=== PATIENT | female | born 1995 | race Caucasian/White ===

== ENCOUNTER 2018-03-26 02:27 | Emergency (ER) | payer SELFPAY ==
--- NOTE | 2018-03-26 02:42 | PDOC ---
History of Present Illness - General Chief Complaint: Ear Problem Stated Complaint: EARACHE History Source: Patient Exam Limitations: No Limitations - History of Present Illness Initial Comments: 03/26/18 03:49 22 yo F with no pmhx presents to the emergency department with bilateral ear pain with associative non productive cough for 3 days. Per the patient, she states she has had progressively worsening ear pain and that her dry cough has been repetitive to the point of gagging but denies emesis. She states beginning today she saw scants amount of blood from the coughing. Concurrently, she states she has had left chest wall pain that worsens with coughs. Past History - Past Medical History Allergies/Adverse Reactions: Allergies Allergy/AdvReac Type Severity Reaction Status Date / Time No Known Drug Allergies Allergy Verified 03/26/18 02:40 Home Medications: Ambulatory Orders No Home Medications 0 dose .ROUTE UTDICT 03/18/12 Anemia: No Asthma: No Cancer: No Cardiac Disorders: No CVA: No COPD: No CHF: No Dementia: No Diabetes: No GI Disorders: No Disorders: No HTN: No Hypercholesterolemia: No Liver Disease: No Seizures: No Thyroid Disease: No - Surgical History Orthopedic Surgery: Yes (left knee for an infection) - Suicide/Smoking/Psychosocial Hx Smoking History: Never smoked Have you smoked in the past 12 months: No Hx Alcohol Use: No Drug/Substance Use Hx: No Substance Use Type: None *DC/Admit/Observation/Transfer Diagnosis at time of Disposition: URI (upper respiratory infection) Qualifiers: URI type: unspecified URI Qualified Code(s): J06.9 - Acute upper respiratory infection, unspecified - Discharge Dispostion Disposition: HOME Decision to Admit order: No - Referrals Referrals: [facility] [place] Internal Med at [place] [Provider Group] - Patient Instructions Printed Discharge Instructions: DI for Viral Upper Respiratory Infection -- Adult Additional Instructions: You were seen in the emergency department for your cough and ear ache. On examination, there was no infection in the ear and likely no infection in the lungs. We did a strep test and a flu test. These were negative. Please follow up with the doctor that has been prescribed to you within 48-72 hours. In addition, please return to the emergency department if you experience fevers, worsening cough with production, worsening chest pain, and overall malaise. Please use tylenol and robitussin as directed on the label for symptom relief. Thank you. Fue atendido en el departamento de emergencias por morales tos y dolor de odo. En el examen, no hubo infeccin en el odo y es probable que no haya infeccin en los pulmones. Hicimos jefferson prueba de estreptococos y jefferson prueba de gripe. Estos fueron negativos. Por favor, consulte con el mdico que le haya recetado dentro de las 48 a 72 horas. Adems, regrese al departamento de emergencias si experimenta fiebre, empeoramiento de la tos con produccin, empeoramiento del dolor de pecho y malestar general. Utilice tylenol y robitussin sampson se indica en la etiqueta para aliviar los sntomas. Shefali. - Post Discharge Activity
[2018-03-26 02:43] VITALS: BP 123/68; PULSE 75; TEMP 98; BMI 22.6
[2018-03-26] MEDS ORDERED: ACETAMINOPHEN 500 MG TABLET (FP) PO ONE (04:03)
[2018-03-26] MEDS ORDERED: ACETAMINOPHEN 325 MG TABLET (FP) ONE (04:17)
--- NOTE | 2018-03-26 05:06 | PDOC ---
Attending Attestation - Resident Resident Name: Balta Cee - ED Attending Attestation I have performed the following: I have examined & evaluated the patient, The case was reviewed & discussed with the resident, I agree w/resident's findings & plan, Exceptions are as noted - HPI HPI: 03/26/18 05:05 22F with persistent coughing, bilateral ear fullness, chest wall px with cough - Physicial Exam PE: 03/26/18 05:05 agree with exam as documented by resident - Medical Decision Making 03/26/18 05:05 Non-toxic appearing 22F with likely viral syndrome symptomatic tx re-eval likely dc
== END 2018-03-26 05:44 | disposition home or self-care (01) ==
LOC: JER 02:27
DX: J06.9 Acute upper respiratory infection, unspecified (principal)
CPT/HCPCS: 87070; 87804; 87880; 99282-25

== ENCOUNTER 2019-07-07 06:55 | Inpatient (IN) | payer OTHER ==
[2019-07-07] MEDS ORDERED: PROMETHAZINE HCL 25 MG/1 ML VIAL IVPUSH ONE (07:42)
[2019-07-07] MEDS ORDERED: DEXTROSE 5%-LACTATED RINGERS 1,000 ML IV SCH (07:45)
--- NOTE | 2019-07-07 07:51 | HP ---
Past Medical History - Primary Care Physician PCP:: Sadia Mathias - Admission Chief Complaint: 24 yrs , 40.1 weeks gestation admitted in [facility]. onset LP since 10.00 PM 07/06/19. History of Present Illness: pnc at , [facility] wt gain 42 lbs during pregn 12/08/18 panel : APos, Hbsag neg, Rpr nr, Hiv nr, Hepc nr, Hiv neg, Varicella immune, Measles immune, Rubella immune , Cf screen neg, Sickle neg Pap: Nilm, gc/ct neg , lead neg 03/30/19 : 1hr Gct 70, Quantiferon neg 06/15/19 Gbs neg gc/ct neg , h/h 12.0/35.1, plt 240, Hiv neg sonogram done by [facility] for growth NT screen not done . Quad screen neg Last sono on 05/10/19, 31.6/7 wks, vx, post placenta, marginal cord insertion , lissett 16.0 , efw 4'10' ( 75 %tile ) History Source: Patient Limitations to Obtaining History: No Limitations - Past Medical History [employer]LE APPLICATION CONSULTANT: No: Migraine, Seizure Cardiovascular: No: HTN, Murmur Pulmonary: No: Asthma Gastrointestinal: No: Gastritis, GERD Hepatobiliary: No: Hepatitis B, Hepatitis C Renal/: No: UTI ...: 1 ...LMP: 09/27/18 ... Weeks Gestation by Dates: 39.5 ...EDC by Dates: 07/09/19 ...EDC by Sono: 07/06/19 (40.1 weeks by sono ) Heme/Onc: No: Anemia Infectious Disease: No: AIDS, HIV, STD's, Tuberculosis Psych: No: Addictions, Anxiety, Bipolar, Depression, Panic, Psychosis, Schizophrenia, Other - Past Surgical History Past Surgical History: Yes: None Hx Myomectomy: No Hx Transabdominal Cerclage: No - Smoking History Smoking history: Never smoked Have you smoked in the past 12 months: No - Alcohol/Substance Use Hx Alcohol Use: No History of Substance Use: reports: None - Social History History of Recent Travel: No Home Medications - Allergies Allergies/Adverse Reactions: Allergies Allergy/AdvReac Type Severity Reaction Status Date / Time No Known Drug Allergies Allergy Verified 07/07/19 07:57 - Home Medications Home Medications: Ambulatory Orders Prenat 115/Iron Fum/Folic/Dss [ 19 Tablet] 1 tab PO DAILY 07/07/19 Physical Exam - Maternity Vital Signs: Selected Entries 07/07/19 07:00 Temperature 98.4 F Pulse Rate 80 Respiratory 20 Rate Blood Pressure 129/67 Weight 167 lb Constitutional: Yes: Well Nourished, Moderate Distress Eyes: Yes: WNL HENT: Yes: WNL Neck: Yes: WNL Cardiovascular: Yes: WNL Lungs: Clear to auscultation Breast(s): Yes: WNL - Abdominal Exam/OB Fundal Height: 40 Number of Fetuses: Single Presentation: Vertex Contractions: Yes Regularity: Regular (3-5 min) Intensity: Moderate Monitor Mode: External Heart Rate (range): 150 Heart Rate Location: [facility] Category: I Accelerations: Uniform - Vaginal Exam/OB Vaginal Bleediing: No Dilatation (cm): 5cm Effacement (%): 100 Amniotic Membrane Status: Intact Presentation: Vertex/Position Station: -2 - Physical Exam Musculoskeletal: Yes: WNL Extremities: Yes: WNL. No: Calf Tenderness Edema: Yes Edema: LLE: 1+, RLE: 1+ Deep Tendon Reflex Grade: Normal +2 ...Motor Strength: WNL Psychiatric: Yes: WNL, Alert, Oriented - Labs Lab Results: Laboratory Tests 07/07/19 07/07/19 07/07/19 08:10 08:10 08:10 WBC 9.2 Hgb 12.3 Hct 35.0 Plt Count 213 PTT (Actin FS) 28.0 Sodium 136 Potassium 3.6 Chloride 106 Carbon Dioxide 21 BUN 5.2 L Creatinine 0.5 L Random Glucose 95 Calcium 8.7 Blood Type Antibody Screen 07/07/19 08:10 WBC Hgb Hct Plt Count PTT (Actin FS) Sodium Potassium Chloride Carbon Dioxide BUN Creatinine Random Glucose Calcium Blood Type A POSITIVE Antibody Screen Negative Problem List - Problems (1) Post term over 40 weeks Code(s): O48.0 - POST-TERM (2) Labor established Code(s): EQE5825 - Assessment/Plan 24 yrs 40.1 weeks admitted in actve labor GBS neg Plan Trial of vaginal delivery Stadol + phenrgan for labor analgesia .
[2019-07-07 08:15] VITALS: BMI 29.5
[2019-07-07] MEDS ORDERED: BUTORPHANOL TARTRATE 1 MG/ML VIAL IVPB ONE (08:30)
[2019-07-07 08:31] LABS: BASO % 0.1 % (0-2.0); EOS % 0.4 % (0-4.5); HEMOGLOBIN 12.3 GM/dL (10.7-15.3); LYMPH % 16.4 % (8-40); MCH 29.9 pg (25.7-33.7); MCHC 35.1 g/dl (32.0-36.0); MEAN CELL VOLUME 85.1 fl (80-96); MEAN PLT VOLUME 8.4 fl (7.5-11.1); MONO % 5.6 % (3.8-10.2); NEUT % 77.5 % (42.8-82.8); PLATELET COUNT 213 K/MM3 (134-434); RBC 4.11 M/mm3 (3.60-5.2); RDW 14.3 % (11.6-15.6); WHITE BLOOD COUNT 9.2 K/mm3 (4.0-10.0)
[2019-07-07 08:53] LABS: BLOOD UREA NITROGEN 5.2 mg/dL (7-18); CALCIUM 8.7 mg/dL (8.5-10.1); CREATININE 0.5 mg/dL (0.55-1.3); POTASSIUM 3.6 mmol/L (3.5-5.1)
[2019-07-07] MEDS ORDERED: PROMETHAZINE HCL 25 MG/1 ML VIAL ONE (09:11)
[2019-07-07] MEDS ORDERED: BUTORPHANOL TARTRATE 1 MG/ML VIAL ONE ×2 (09:11)
[2019-07-07 09:52] LABS: INR 0.92 (0.83-1.09); PROTHROMBIN TIME (PATIENT) 10.9 SEC (9.7-13.0)
[2019-07-07] MEDS ORDERED: OXYTOCIN 20 UNITS in 0.9% NS 20 UNIT/1,000 ML INFUS.BAG IV ONE (11:38)
--- NOTE | 2019-07-07 11:51 | PN ---
Progress Note, Labor Vaginal Exam #1 Labor Exam Date: 07/07/19 Labor Exam Time: 09:10 Heart Rate (range): 135 Dilatation: 7 Effacement (%): 100 Amniotic Membrane Status: Ruptured (AROM , clear, mod amount) Presentation: Vertex/Position Station: -1 Remarks: fhr cat-1 uc q 2-4 min Stadol 2 mg + phenrgan 25 mg iv stat dose given Selected Entries 07/07/19 08:00 Temperature 98.7 F Pulse Rate 74 Respiratory 20 Rate Blood Pressure 136/76 Vaginal Exam #2 Labor Exam Date: 07/07/19 Labor Exam Time: 11:42 Heart Rate (range): 130 Dilatation: 9 Effacement (%): 100 Amniotic Membrane Status: Ruptured Presentation: Vertex/Position Station: +1 (caput) Remarks: fhr cat-1 uc q 3-4 min Selected Entries 07/07/19 11:30 Temperature 98.2 F Pulse Rate 71 Blood Pressure 138/75 Vaginal Exam #3 Labor Exam Date: 07/07/19 Labor Exam Time: 13:00 Heart Rate (range): 140 Dilatation: 10 Effacement (%): 100 Amniotic Membrane Status: Ruptured Presentation: Vertex/Position Station: +2 (+2/+3 ,caput) Remarks: uc dysfunctional 3 min to 1 min , fhr cat-1 pt feels better pushing . encourage to push 13.15 hr pitocin augmentation started to improve contraction strength Selected Entries 07/07/19 12:38 Temperature 98.3 F Pulse Rate 78 Blood Pressure 145/82
[2019-07-07] MEDS ORDERED: OXYTOCIN 30 UNITS in 0.9% NS 30 UNIT/500 ML INFUS.BAG IVPB ONE (13:12)
[2019-07-07] MEDS ORDERED: OXYTOCIN 30 UNITS in 0.9% NS 30 UNIT/500 ML INFUS.BAG IVPB SCH (13:15)
[2019-07-07] MEDS ORDERED: LIDOCAINE HCL 1% PRESERVATIVE FREE - 30ML VIAL ONE (13:50)
--- NOTE | 2019-07-07 14:58 | PN ---
Delivery - Delivery Vaginal Delivery: No Problems, Spontaneous (vaginal delivery vx, Melo position . Suction at perineum mouth & nose was done . shoulders delievered without difficulty . . placenta & membranes delievered complete;y. marginal insertion of cord at placenta confirmed. Trivascular cord .cord segment for cord blood gas cut,only umblical venous blood could be collected, unable to draw UA blood.cord blood collected. Median epi was given which was sutured in layers with chr catgut #2/0 . bladder catheterized & emptied 100 ml urine. WI ex mucosa & sphincter intact .Anal tags noted) Type of Anesthesia: Local Episiotomy/Laceration: Midline EBL (cc): 350 Delivery, Single - Stages of Labor Date 1st Stage Initiatied: 07/06/19 Time 1st Stage Initiated: 22:00 Date 2nd Stage Initiated: 07/07/19 Time 2nd Stage Initiated: 13:00 Date of Delivery: 07/07/19 Time of Delivery: 14:05 Date Placenta Delivered: 07/07/19 Time Placenta Delivered: 14:10 Placenta: Yes: Spontaneous, Uterine Exploration - Condition of Infant Leather Whitener/Renewable Energy Division Manager Present: No Gender: Male Weight: 8 lb 2 oz Position: Right, OA Total Hours ROM (Hrs/Mins): 5hrs - 1 Minute Total Score: 9 5 Minutes Total Score: 9 - Feeding Plan Initial Plan: Exclusive throughout hospitalization Remarks - Remarks Remarks: 24 yrs , 40.1 weeks in labor pnc at [address] [place] [address] gbs neg . Iv stadol+ phenrgan was given for labor analgesia intrapartum course uneventful
[2019-07-07] MEDS ORDERED: WITCH HAZEL 50% (TUCKS) 40 PAD/JAR PAD TP PRN (15:03)
[2019-07-07] MEDS ORDERED: BENZOCAINE 28 GM HEMORRHOIDAL OINTMENT TP PRN (15:03)
[2019-07-07] MEDS ORDERED: ACETAMINOPHEN 325 MG TABLET (FP) PO PRN (15:03)
[2019-07-07] MEDS ORDERED: BISACODYL 10 MG SUPP.RECT RC PRN (15:03)
[2019-07-07] MEDS ORDERED: METHYLERGONOVINE MALEATE 0.2 MG/1 ML AMP IM PRN (15:03)
[2019-07-07] MEDS ORDERED: BENZOCAINE 20% 57 GM BOTTLE TP PRN (15:03)
[2019-07-07] MEDS ORDERED: oxyCODONE HCL 5 MG TABLET PO PRN (15:03)
[2019-07-07] MEDS ORDERED: IBUPROFEN 600 MG TABLET (FP) PO PRN (15:03)
[2019-07-07] MEDS ORDERED: OXYTOCIN 20 UNITS in 0.9% NS 20 UNIT/1,000 ML INFUS.BAG IV SCH (15:15)
[2019-07-07] MEDS: FERROUS SO4 325 MG TABLET (FP) PO SCH (17:41)
[2019-07-08 08:55] LABS: BASO % 0.3 % (0-2.0); EOS % 0.3 % (0-4.5); HEMATOCRIT 29.4 % (32.4-45.2); LYMPH % 16.9 % (8-40); MCH 29.7 pg (25.7-33.7); MEAN CELL VOLUME 87.2 fl (80-96); MEAN PLT VOLUME 8.8 fl (7.5-11.1); MONO % 6.3 % (3.8-10.2); NEUT % 76.2 % (42.8-82.8); PLATELET COUNT 177 K/MM3 (134-434); RBC 3.37 M/mm3 (3.60-5.2); RDW 14.5 % (11.6-15.6); WHITE BLOOD COUNT 13.4 K/mm3 (4.0-10.0)
--- NOTE | 2019-07-08 09:23 | PN ---
Post Progress Note - Subjective Subjective: Ambulating, tolerating PO, lochia decreased, breast and bottle feeding, voiding Post Day: 1 Type of Delivery: Vital Signs: Vital Signs Temperature 98.7 F 07/08/19 02:00 Pulse Rate 77 07/08/19 02:00 Respiratory Rate 18 07/08/19 02:00 Blood Pressure 105/58 L 07/08/19 02:00 O2 Sat by Pulse Oximetry (%) 100 07/07/19 15:30 Breast Exam: Yes: Other (deferred) Uterus: Yes: Fundus Firm Abdomen/GI: Yes: Abdomen soft Lochia, amount: Small Extremities: Yes: Calves non-tender Activity: Ambulating - Labs Labs: CBC WBC 13.4 K/mm3 (4.0-10.0) H 07/08/19 07:49 RBC 3.37 M/mm3 (3.60-5.2) L 07/08/19 07:49 Hgb 10.0 GM/dL (10.7-15.3) L 07/08/19 07:49 Hct 29.4 % (32.4-45.2) L D 07/08/19 07:49 MCV 87.2 fl (80-96) 07/08/19 07:49 MCH 29.7 pg (25.7-33.7) 07/08/19 07:49 MCHC 34.0 g/dl (32.0-36.0) 07/08/19 07:49 RDW 14.5 % (11.6-15.6) 07/08/19 07:49 Plt Count 177 K/MM3 (134-434) 07/08/19 07:49 MPV 8.8 fl (7.5-11.1) 07/08/19 07:49 Absolute Neuts (auto) 10.2 K/mm3 (1.5-8.0) H 07/08/19 07:49 Neutrophils % 76.2 % (42.8-82.8) 07/08/19 07:49 Lymphocytes % 16.9 % (8-40) 07/08/19 07:49 Monocytes % 6.3 % (3.8-10.2) 07/08/19 07:49 Eosinophils % 0.3 % (0-4.5) 07/08/19 07:49 Basophils % 0.3 % (0-2.0) 07/08/19 07:49 Nucleated RBC % 0 % (0-0) 07/08/19 07:49 Assessment/Plan PP # 1 in stable condition, PP precautions discussed, baby at bedside and declined circumcision -Continue PP care -Encourage ambulation and breast feeding -Anticipate D/C home tomorrow
[2019-07-08] MEDS: FERROUS SO4 325 MG TABLET (FP) PO SCH ×2 (09:24→17:07)
[2019-07-08] MEDS: PRENATAL VITAMINS W/ FOLIC ACID TABLET (FP) PO SCH (09:24)
[2019-07-08] MEDS ORDERED: DIPHTH,PERTUSS(ACELL),TET 0.5 ML DISP.SYRIN IM ONE (10:00)
[2019-07-08] MEDS ORDERED: SENNOSIDES/DOCUSATE COMBO (SENNA PLUS) TABLET (UD) PO PRN (22:00)
--- NOTE | 2019-07-09 07:03 | DS ---
Physical Exam-VPK TEACHER Vital Signs: Vital Signs Temperature 98.1 F 07/08/19 21:35 Pulse Rate 83 07/08/19 21:35 Respiratory Rate 20 07/08/19 21:35 Blood Pressure 119/72 07/08/19 21:35 O2 Sat by Pulse Oximetry (%) 100 07/07/19 15:30 Constitutional: Yes: Well Nourished, No Distress, Calm Eyes: Yes: WNL, Conjunctiva Clear, EOM Intact HENT: Yes: WNL, Atraumatic, Normocephalic Neck: Yes: WNL Cardiovascular: Yes: WNL Respiratory: Yes: WNL Gastrointestinal: Yes: WNL ...Rectal Exam: Yes: WNL Renal/: Yes: WNL External Genitalia: Yes: Normal ....Post : Yes: Uterus firm, Uterus non-tender, Slight lochia rubra Breast(s): Yes: WNL Musculoskeletal: Yes: WNL Extremities: Yes: WNL Edema: No Integumentary: Yes: WNL Neurological: Yes: WNL ...Motor Strength: WNL Psychiatric: Yes: WNL Labs: CBC, BMP 07/08/19 07:49 07/07/19 08:10 Delivery - Delivery Vaginal Delivery: No Problems, Spontaneous (vaginal delivery vx, Melo position . Suction at perineum mouth & nose was done . shoulders delievered without difficulty . . placenta & membranes delievered complete;y. marginal insertion of cord at placenta confirmed. Trivascular cord .cord segment for cord blood gas cut,only umblical venous blood could be collected, unable to draw UA blood.cord blood collected. Median epi was given which was sutured in layers with chr catgut #2/0 . bladder catheterized & emptied 100 ml urine. CO ex mucosa & sphincter intact .Anal tags noted) Type of Anesthesia: Local Episiotomy/Laceration: Midline EBL (cc): 350 Delivery, Single - Stages of Labor Date 1st Stage Initiatied: 07/06/19 Time 1st Stage Initiated: 22:00 Date 2nd Stage Initiated: 07/07/19 Time 2nd Stage Initiated: 13:00 Date of Delivery: 07/07/19 Time of Delivery: 14:05 Time Placenta Delivered: 14:10 Placenta: Yes: Spontaneous, Uterine Exploration - Condition of Hose Tubing Backer/Street Photographer Present: No Gender: Male Weight: 8 lb 2 oz Position: Right, OA Total Hours ROM (Hrs/Mins): 5hrs - 1 Minute Total Score: 9 5 Minutes Total Score: 9 - [place] Feeding Plan Initial Plan: Exclusive throughout hospitalization Discharge Summary Problems reviewed: Yes Reason For Visit: LABOR Current Active Problems Labor established (Acute) Normal spontaneous vaginal delivery (Acute) Post term over 40 weeks (Acute) Procedures: Principal: Hospital Course: no complication Health Concerns: anemia Plan of Treatment: iron, vit Condition: Stable - Instructions Diet, Activity, Other Instructions: Post Instructions DIET: Continue good diet high in protein, calcium, and iron rich foods. Drink at least eight (8) glasses of water daily in addition to other fluids. ___ Regular diet MEDICATIONS: Continue vitamins and iron as previously directed. Motrin and Tylenol may be taken for minor discomfort. ACTIVITY: Mild to moderate exercise may be started in two (2) weeks. Take frequent rest periods. Resume normal activity after six (6) week check up. WOUND CARE OF OPERATIVE SITE: Continue use of perineal bottle until vaginal discharge stops. Keep area clean. Shower daily. Keep abdominal wound dry. Report any drainage or redness to physician. Tub baths, tampons and douches are not permitted for [address]_ Breast feeding & or Bottle feeding BREAST CARE: (For those that are not ): If engorgement occurs: Wear tight fitting bra. Take Tylenol or Motrin for pain. Apply cold packs (ice in bags to each breast ) FAMILY PLANNING: There are many control alternatives to pursue and they should be discussed at your first office visit. You may resume sexual activity after your six (6) week check up. (Remember, is not a contraceptive) NEXT PHYSICIAN APPOINTMENT: Be certain to call for a three (3) week appointment, unless otherwise directed. Call Clinic or got to Emergency Dept if you have any of the following: Heavy vaginal bleeding Painful urination Leg pain Unusual odor noted to vaginal bleeding High fever Red streaking noted on breast Referrals: Sadia Mathias MD [Staff Physician] - Disposition: HOME - Home Medications Comprehensive Discharge Medication List: Ambulatory Orders Prenat 115/Iron Fum/Folic/Dss [ 19 Tablet] 1 tab PO DAILY 07/07/19 Acetaminophen [Tylenol .Regular Strength -] 650 mg PO Q3H PRN tablet 07/08/19 Benzocaine [Americaine 20% [place] -] 1 spray TP PRN PRN bottle 07/08/19 Ferrous Sulfate [Feosol] 325 mg PO DAILY #30 tab 07/08/19 Ibuprofen [Motrin -] 600 mg PO Q4H PRN #30 tablet 07/08/19 Vitamins (Sjr) - 1 tab PO DAILY #30 tablet 07/08/19 Sennosides/Docusate Sodium [Pericolace -] 2 tablet PO HS PRN #30 tablet 07/08/19 Witch Susan 50% (Tucks) [Tucks Pads -] 1 pad TP PRN PRN pad 07/08/19
[2019-07-09] MEDS: FERROUS SO4 325 MG TABLET (FP) PO SCH (08:00)
[2019-07-09] MEDS: PRENATAL VITAMINS W/ FOLIC ACID TABLET (FP) PO SCH (10:29)
[2019-07-09 12:34] VITALS: BP 132/73; PULSE 77; TEMP 98.3
== END 2019-07-09 14:40 | disposition home or self-care (01) | DRG 560 ==
LOC: JLDR 06:55 → J3W 16:01
PROVIDERS: ADMIT Obstetrics & Gynecology; ATTEND Obstetrics & Gynecology
PROC: 0W8NXZZ Division of Female Perineum, External Approach (ICD-10-PCS; principal; 2019-07-07)
PROC: 10E0XZZ Delivery of Products of Conception, External Approach (ICD-10-PCS; 2019-07-07)
DX: O48.0 Post-term pregnancy (principal); Z3A.40 40 weeks gestation of pregnancy; Z37.0 Single live birth
CPT/HCPCS: 36415; 36600; 59409; 80048; 82803; 85025; 85610; 85730; 86593; 86850; 86900; 86901; 90715

== ENCOUNTER 2020-10-03 04:39 | Emergency (ER) | payer OTHER ==
[2020-10-03 04:47] VITALS: BMI 23.0
[2020-10-03] MEDS ORDERED: morphine CARPU-JECT 4 MG/1 ML DISP.SYRIN IVPUSH ONE (05:09)
[2020-10-03] MEDS ORDERED: ONDANSETRON 4 MG/2 ML VIAL IVPUSH ONE (05:09)
[2020-10-03] MEDS ORDERED: LACTATED RINGERS SOLUTION 1000 ML INFUS.BAG IV ONE (05:10)
[2020-10-03] MEDS ORDERED: morphine SULFATE 4 MG/ML VIAL ONE (05:23)
[2020-10-03] MEDS ORDERED: ONDANSETRON 4 MG/2 ML VIAL ONE (05:24)
[2020-10-03 06:26] LABS: BASO % 0.1 % (0-2.0); EOS % 0.1 % (0-4.5); HEMATOCRIT 41.2 % (32.4-45.2); HEMOGLOBIN 14.3 GM/dL (10.7-15.3); LYMPH % 12.2 % (8-40); MCH 28.6 pg (25.7-33.7); MCHC 34.6 g/dl (32.0-36.0); MEAN CELL VOLUME 82.8 fl (80-96); MEAN PLT VOLUME 7.9 fl (7.5-11.1); MONO % 3.3 % (3.8-10.2); NEUT % 84.3 % (42.8-82.8); PLATELET COUNT 293 K/MM3 (134-434); RBC 4.98 M/mm3 (3.60-5.2); RDW 13.8 % (11.6-15.6); WHITE BLOOD COUNT 9.7 K/mm3 (4.0-10.0)
[2020-10-03 06:32] LABS: EPI CELLS 28 /uL (0-25.1); HCG,QUALITATIVE URINE Negative; HYALINE CASTS 2 /uL (0-3.1); PH,URINE 5.5 (5.0-8.0); URINE APPEARANCE CLEAR; URINE BACTERIA 1087 /uL (0-1359); URINE BILIRUBIN NEGATIVE (NEGATIVE); URINE COLOR YELLOW; URINE GLUCOSE (UA) NEGATIVE (NEGATIVE); URINE KETONE NEGATIVE (NEGATIVE); URINE LEUK ESTERASE TRACE (NEGATIVE); URINE NITRITE NEGATIVE (NEGATIVE); URINE PROTEIN TRACE (NEGATIVE); URINE RBC 6 /uL (0-23.9); URINE UROBILINOGEN 0.2 mg/dL (0.2-1.0); URINE WBC 54 /uL (0-25.8)
[2020-10-03 06:34] LABS: PROTHROMBIN TIME (PATIENT) 12.1 SEC (9.7-13.0)
[2020-10-03 06:49] LABS: ALBUMIN 4.5 g/dl (3.4-5.0); CALCIUM 9.3 mg/dL (8.5-10.1)
[2020-10-03 06:52] LABS: CREATININE 0.4 mg/dL (0.55-1.3)
[2020-10-03 06:53] LABS: BILIRUBIN,TOTAL 0.4 mg/dL (0.2-1)
[2020-10-03 06:54] LABS: TOT PROT 8.6 g/dl (6.4-8.2)
[2020-10-03 07:22] VITALS: BP 136/95; PULSE 70; TEMP 98.4
[2020-10-03] MEDS ORDERED: morphine CARPU-JECT 2 MG/1 ML DISP.SYRIN IVPUSH ONE (07:31)
[2020-10-03] MEDS ORDERED: ACETAMINOPHEN 500 MG TABLET (FP) PO ONE (07:31)
[2020-10-03] MEDS ORDERED: MORPHINE SULFATE 2 MG/ML VIAL ONE (07:32)
[2020-10-03] MEDS ORDERED: ACETAMINOPHEN 325 MG TABLET (FP) ONE (08:39)
[2020-10-03] MEDS ORDERED: CEFTRIAXONE 1,000 MG in DEXTROSE 5%-WATER - 50 ML IVPB ONE (11:07)
[2020-10-03] MEDS ORDERED: ACETAMINOPHEN 1000 MG/100 ML VIAL (NON FORMULARY) IVPB ONE (11:07)
[2020-10-03] MEDS ORDERED: ACETAMINOPHEN INJECTION 100 ML IVPB ONE (11:25)
[2020-10-03] MEDS ORDERED: CEFTRIAXONE 1 GM/50 ML BAG ONE (11:26)
[2020-10-03] MEDS ORDERED: FAMOTIDINE 20 MG/50 ML IVPB 20 MG/50 ML MG IVPB ONE ×2 (11:45→11:47)
== END 2020-10-03 11:37 | disposition home or self-care (01) ==
LOC: JER 04:39
PROC: 3E0333Z Introduction of Anti-inflammatory into Peripheral Vein, Percutaneous Approach (ICD-10-PCS; principal; 2020-10-03)
PROC: 3E03329 Introduction of Other Anti-infective into Peripheral Vein, Percutaneous Approach (ICD-10-PCS; 2020-10-03)
PROC: 3E033GC Introduction of Other Therapeutic Substance into Peripheral Vein, Percutaneous Approach (ICD-10-PCS; 2020-10-03)
PROC: 3E033NZ Introduction of Analgesics, Hypnotics, Sedatives into Peripheral Vein, Percutaneous Approach (ICD-10-PCS; 2020-10-03)
PROC: 3E033NZ Introduction of Analgesics, Hypnotics, Sedatives into Peripheral Vein, Percutaneous Approach (ICD-10-PCS; 2020-10-03)
PROC: 3E033GC Introduction of Other Therapeutic Substance into Peripheral Vein, Percutaneous Approach (ICD-10-PCS; 2020-10-03)
DX: R10.11 Right upper quadrant pain (principal)
CPT/HCPCS: 36415; 76705-TC; 80053; 81003; 83690; 84703; 85025; 85610; 85730; 86850; 86900; 86901; 87086; 93005; 93010; 99285-25; J0131

== ENCOUNTER 2020-10-30 04:55 | Inpatient (IN) | payer OTHER ==
[2020-10-30 05:06] VITALS: BMI 22.3
[2020-10-30] MEDS ORDERED: SODIUM CHLORIDE 0.9% 500 ML INFUS.BAG IV ONE (05:21)
[2020-10-30] MEDS ORDERED: morphine CARPU-JECT 4 MG/1 ML DISP.SYRIN IVPUSH ONE (05:21)
[2020-10-30] MEDS ORDERED: ONDANSETRON 4 MG/2 ML VIAL IVPUSH ONE (05:33)
[2020-10-30] MEDS ORDERED: MORPHINE SULFATE 2 MG/ML VIAL ONE ×2 (05:34→06:19)
[2020-10-30] MEDS ORDERED: ONDANSETRON 4 MG/2 ML VIAL ONE (05:35)
[2020-10-30 06:07] LABS: INR 1.06 (0.83-1.09)
[2020-10-30 06:09] LABS: ACTIVATED PTT 28.7 SECONDS (25.2-36.5)
[2020-10-30] MEDS ORDERED: morphine CARPU-JECT 2 MG/1 ML DISP.SYRIN IVPUSH ONE (06:15)
[2020-10-30] MEDS ORDERED: ACETAMINOPHEN 1000 MG/100 ML VIAL (NON FORMULARY) IVPB ONE (06:15)
[2020-10-30 06:17] LABS: ALBUMIN 4.4 g/dl (3.4-5.0); BLOOD UREA NITROGEN 12.6 mg/dL (7-18); CALCIUM 8.9 mg/dL (8.5-10.1)
[2020-10-30] MEDS ORDERED: ACETAMINOPHEN INJECTION 100 ML IVPB ONE (06:19)
[2020-10-30 06:21] LABS: CREATININE 0.4 mg/dL (0.55-1.3)
[2020-10-30 06:22] LABS: BILIRUBIN,TOTAL 0.6 mg/dL (0.2-1); TOT PROT 8.4 g/dl (6.4-8.2)
[2020-10-30 06:26] LABS: BASO % 0.2 % (0-2.0); EOS % 0.2 % (0-4.5); HEMATOCRIT 40.2 % (32.4-45.2); HEMOGLOBIN 13.8 GM/dL (10.7-15.3); LYMPH % 14.3 % (8-40); MCH 27.9 pg (25.7-33.7); MCHC 34.3 g/dl (32.0-36.0); MEAN CELL VOLUME 81.4 fl (80-96); MEAN PLT VOLUME 7.8 fl (7.5-11.1); NEUT % 80.3 % (42.8-82.8); PLATELET COUNT 283 10^3/uL (134-434); RBC 4.94 M/mm3 (3.60-5.2); RDW 13.5 % (11.6-15.6); WHITE BLOOD COUNT 8.4 K/mm3 (4.0-10.0)
[2020-10-30] MEDS ORDERED: CEFTRIAXONE 1,000 MG in DEXTROSE 5%-WATER - 50 ML IVPB ONE (06:33)
[2020-10-30] MEDS ORDERED: CEFTRIAXONE 1 GM/50 ML BAG ONE (06:34)
[2020-10-30] MEDS ORDERED: morphine CARPU-JECT 2 MG/1 ML DISP.SYRIN IVPUSH PRN (09:20)
[2020-10-30] MEDS ORDERED: ONDANSETRON 4 MG/2 ML VIAL IVPUSH PRN (09:22)
[2020-10-30] MEDS: SODIUM CHLORIDE 1,000 ML IV SCH ×2 (09:40→18:18)
[2020-10-30] MEDS ORDERED: PIPERACILLIN/TAZOB 3.375 GM 3.375 GM/50 ML BAG IVPB ONE (12:08)
[2020-10-30] MEDS: PIPERACILLIN/TAZOB 3.375 GM 3.375 GM in DEXTROSE 5%-WATER - 50 ML IVPB SCH ×2 (12:09→19:53)
[2020-10-30] MEDS ORDERED: ACETAMINOPHEN 1000 MG/100 ML VIAL (NON FORMULARY) IVPB PRN (19:14)
[2020-10-30] MEDS ORDERED: DEXTROSE 5%-WATER - 50 ML IVPB ONE (19:38)
[2020-10-30] MEDS ORDERED: PIPERACILLIN/TAZOBACTAM 3.375 GM VIAL IVPB ONE (19:38)
[2020-10-30] MEDS ORDERED: MORPHINE SULFATE 2 MG/ML VIAL IVPUSH PRN (23:35)
[2020-10-31] MEDS ORDERED: DEXTROSE 5%-WATER - 50 ML IVPB ONE ×2 (03:20→09:14)
[2020-10-31] MEDS ORDERED: PIPERACILLIN/TAZOBACTAM 3.375 GM VIAL IVPB ONE ×2 (03:20→09:14)
[2020-10-31] MEDS: PIPERACILLIN/TAZOB 3.375 GM 3.375 GM in DEXTROSE 5%-WATER - 50 ML IVPB SCH (04:00)
[2020-10-31] MEDS: SODIUM CHLORIDE 1,000 ML IV SCH (05:17)
[2020-10-31 08:16] LABS: HEMATOCRIT 35.6 % (32.4-45.2); MCH 27.7 pg (25.7-33.7); MCHC 33.8 g/dl (32.0-36.0); MEAN CELL VOLUME 81.9 fl (80-96); MEAN PLT VOLUME 7.6 fl (7.5-11.1); PLATELET COUNT 219 10^3/uL (134-434); RBC 4.34 M/mm3 (3.60-5.2); RDW 13.5 % (11.6-15.6); WHITE BLOOD COUNT 6.8 K/mm3 (4.0-10.0)
[2020-10-31 08:18] LABS: INR 1.19 (0.83-1.09); PROTHROMBIN TIME (PATIENT) 14.6 SEC (9.7-13.0)
[2020-10-31 08:20] LABS: ACTIVATED PTT 29.3 SECONDS (25.2-36.5)
[2020-10-31 08:30] LABS: CALCIUM 8.2 mg/dL (8.5-10.1)
[2020-10-31 08:31] LABS: BLOOD UREA NITROGEN 11.4 mg/dL (7-18); MAGNESIUM 1.9 mg/dL (1.8-2.4)
[2020-10-31 08:34] LABS: CREATININE 0.4 mg/dL (0.55-1.3); PHOSPHOROUS 4.2 mg/dL (2.5-4.9)
[2020-10-31 08:36] LABS: BILIRUBIN,TOTAL 0.9 mg/dL (0.2-1); TOT PROT 6.8 g/dl (6.4-8.2)
[2020-10-31 08:46] LABS: ALBUMIN 3.4 g/dl (3.4-5.0)
[2020-10-31] MEDS ORDERED: PIPERACILLIN/TAZOB 3.375 GM 3.375 GM in DEXTROSE 5%-WATER - 50 ML IVPB SCH (10:00)
[2020-10-31] MEDS ORDERED: BUPIVACAINE HCL/PF 0.5% (5MG/ML) 10 ML VIAL ONE ×2 (12:33→12:38)
[2020-10-31] MEDS ORDERED: SUCCINYLCHOLINE CHLORIDE 200 MG/10 ML SYRINGE ONE (13:32)
[2020-10-31] MEDS ORDERED: fentaNYL CITRATE 250 MCG/5 ML VIAL ONE (13:32)
[2020-10-31] MEDS ORDERED: PROPOFOL 20 ML ONE ×2 (13:32)
[2020-10-31] MEDS ORDERED: MIDAZOLAM HCL 2 MG/2 ML SINGLE DOSE VIAL ONE (13:32)
[2020-10-31] MEDS ORDERED: ROCURONIUM BROMIDE 50 MG/5 ML SYRINGE ONE (13:32)
[2020-10-31] MEDS ORDERED: EPHEDRINE SULFATE/0.9% NACL/PF 50 MG/10 ML SYRINGE NR ONE (13:38)
[2020-10-31] MEDS ORDERED: DEXAMETHASONE SOD PHOSPHATE 4 MG/1 ML VIAL ONE (13:57)
[2020-10-31] MEDS ORDERED: KETOROLAC TROMETHAMINE 30 MG/1 ML VIAL ONE (13:57)
[2020-10-31] MEDS ORDERED: GLYCOPYRROLATE 0.2 MG/1 ML VIAL ONE ×2 (14:00→15:40)
[2020-10-31] MEDS ORDERED: NEOSTIGMINE METHYLSULFATE 0.5 MG/ML - 10 ML MDV ONE (14:00)
[2020-10-31] MEDS ORDERED: MINERAL OIL/PETROLATUM,WHITE 3.5 GM TUBE ONE ×2 (14:02→15:53)
[2020-10-31] MEDS ORDERED: BUPIVACAINE HCL/PF 0.5% (5 MG/ML) 30 ML VIAL IJ ONE (14:48)
[2020-10-31] MEDS ORDERED: ESMOLOL HCL 100,000 MCG/10 ML VIAL ONE (15:41)
[2020-10-31] MEDS ORDERED: ONDANSETRON 4 MG/2 ML VIAL IVPUSH PRN ×2 (16:02→16:28)
[2020-10-31] MEDS ORDERED: ACETAMINOPHEN 1000 MG/100 ML VIAL (NON FORMULARY) IVPB PRN (16:14)
[2020-10-31] MEDS ORDERED: LACTATED RINGERS SOLUTION 1,000 ML IV SCH ×2 (16:15→16:28)
[2020-10-31] MEDS ORDERED: KETOROLAC TROMETHAMINE 30 MG/1 ML VIAL IVPUSH PRN (16:15)
[2020-10-31] MEDS ORDERED: MORPHINE SULFATE 2 MG/ML VIAL IVPUSH PRN (16:28)
[2020-10-31] MEDS ORDERED: ACETAMINOPHEN INJECTION 100 ML IVPB ONE (16:59)
[2020-10-31] MEDS ORDERED: ACETAMINOPHEN 1000 MG/100 ML VIAL (NON FORMULARY) IVPB ONE (17:00)
[2020-10-31] MEDS: oxyCODONE HCL 5 MG TABLET PO PRN (21:53)
[2020-11-01] MEDS: oxyCODONE HCL 5 MG TABLET PO PRN (03:35)
[2020-11-01 09:08] LABS: HEMATOCRIT 35.7 % (32.4-45.2); HEMOGLOBIN 11.9 GM/dL (10.7-15.3); MCH 27.3 pg (25.7-33.7); MCHC 33.3 g/dl (32.0-36.0); MEAN CELL VOLUME 82.1 fl (80-96); MEAN PLT VOLUME 7.9 fl (7.5-11.1); PLATELET COUNT 255 10^3/uL (134-434); RBC 4.34 M/mm3 (3.60-5.2); RDW 13.3 % (11.6-15.6)
[2020-11-01 09:29] LABS: ALBUMIN 3.3 g/dl (3.4-5.0); BLOOD UREA NITROGEN 5.8 mg/dL (7-18); CALCIUM 8.4 mg/dL (8.5-10.1)
[2020-11-01 09:32] LABS: CREATININE 0.5 mg/dL (0.55-1.3)
[2020-11-01 09:34] LABS: BILIRUBIN,TOTAL 0.8 mg/dL (0.2-1); TOT PROT 6.5 g/dl (6.4-8.2)
[2020-11-01 13:17] VITALS: BP 112/61; PULSE 74; TEMP 98.4
== END 2020-11-01 18:17 | disposition home or self-care (01) | DRG 263 ==
LOC: JER 04:55 → JERBED 06:56 → J6S 13:57
PROVIDERS: ATTEND Internal Medicine
PROC: 0FT44ZZ Resection of Gallbladder, Percutaneous Endoscopic Approach (ICD-10-PCS; principal; 2020-10-31 13:00)
DX: K80.00 Calculus of gallbladder with acute cholecystitis without obstruction (principal)
CPT/HCPCS: 36415; 71045-TC-FY; 76705-TC; 80053; 83690; 83735; 84100; 84703; 85025; 85027; 85610; 85730; 86850; 86900; 86901; 93005; 93010; 94010; 94760; 99285-25; C9803; J0131; U0003; U0005

== ENCOUNTER 2020-11-01 21:22 | Emergency (ER) | payer OTHER ==
[2020-11-01 21:28] VITALS: TEMP 98.3; BMI 20.1
[2020-11-02] MEDS ORDERED: ACETAMINOPHEN 500 MG TABLET (FP) PO ONE (00:01)
[2020-11-02] MEDS ORDERED: ACETAMINOPHEN 1000 MG/100 ML VIAL (NON FORMULARY) IVPB ONE (00:13)
[2020-11-02] MEDS ORDERED: ONDANSETRON 4 MG/2 ML VIAL IVPUSH ONE ×2 (00:13→02:09)
[2020-11-02] MEDS ORDERED: ONDANSETRON 4 MG/2 ML VIAL ONE ×2 (00:19→02:19)
[2020-11-02] MEDS ORDERED: ACETAMINOPHEN INJECTION 100 ML IVPB ONE (00:28)
[2020-11-02 00:36] LABS: BASO % 0.2 % (0-2.0); EOS % 0.2 % (0-4.5); HEMATOCRIT 36.2 % (32.4-45.2); HEMOGLOBIN 12.2 GM/dL (10.7-15.3); LYMPH % 18.9 % (8-40); MCH 27.6 pg (25.7-33.7); MCHC 33.7 g/dl (32.0-36.0); MEAN CELL VOLUME 81.9 fl (80-96); MEAN PLT VOLUME 7.4 fl (7.5-11.1); MONO % 10.1 % (3.8-10.2); NEUT % 70.6 % (42.8-82.8); PLATELET COUNT 271 10^3/uL (134-434); RBC 4.42 M/mm3 (3.60-5.2); RDW 13.7 % (11.6-15.6); WHITE BLOOD COUNT 10.5 K/mm3 (4.0-10.0)
[2020-11-02 00:53] LABS: ALBUMIN 3.5 g/dl (3.4-5.0); CALCIUM 8.4 mg/dL (8.5-10.1)
[2020-11-02 00:54] LABS: BLOOD UREA NITROGEN 7.2 mg/dL (7-18)
[2020-11-02 00:57] LABS: CREATININE 0.4 mg/dL (0.55-1.3)
[2020-11-02 01:03] LABS: INR 1.15 (0.83-1.09); PROTHROMBIN TIME (PATIENT) 13.8 SEC (9.7-13.0)
[2020-11-02 01:06] LABS: ACTIVATED PTT 24.6 SECONDS (25.2-36.5)
[2020-11-02 03:33] VITALS: BP 107/61; PULSE 72
[2020-11-02] MEDS ORDERED: ONDANSETRON *ODT* 4 MG TABLET SL ONE (03:43)
[2020-11-02] MEDS ORDERED: ONDANSETRON *ODT* 4 MG TABLET ONE (03:45)
== END 2020-11-02 03:39 | disposition home or self-care (01) ==
LOC: JER 21:22
DX: R07.9 Chest pain, unspecified (principal)
CPT/HCPCS: 36415; 71275-TC; 80053; 84703; 85025; 85610; 85730; 93005; 93010; 99285-25; J0131; Q9967

== ENCOUNTER 2023-06-10 16:14 | Emergency (ER) | payer OTHER ==
[2023-06-10 16:18] VITALS: BP 118/64; PULSE 102; RESP 20; TEMP 98.3; BMI 30.5
[2023-06-10 18:01] LABS: HEMATOCRIT 41.2 % (32.4-45.2); HEMOGLOBIN 14.4 GM/dL (10.7-15.3); MCH 28.5 pg (25.7-33.7); MCHC 34.8 g/dl (32.0-36.0); MEAN CELL VOLUME 81.9 fl (80-96); MEAN PLT VOLUME 7.4 fl (7.5-11.1); PLATELET COUNT 291 10^3/uL (134-434); RBC 5.04 M/mm3 (3.60-5.2); RDW 13.6 % (11.6-15.6); WHITE BLOOD COUNT 6.5 K/mm3 (4.0-10.0)
[2023-06-10] MEDS ORDERED: FAMOTIDINE 20 MG/50 ML IVPB 20 MG/50 ML MG IVPB ONE (18:11)
[2023-06-10] MEDS ORDERED: ONDANSETRON 4 MG/2 ML VIAL ONE (18:11)
[2023-06-10] MEDS ORDERED: ACETAMINOPHEN INJECTION 100 ML IVPB ONE (18:11)
[2023-06-10 18:21] LABS: POTASSIUM 3.6 mmol/L (3.5-5.1)
[2023-06-10 18:23] LABS: ALBUMIN 4.1 g/dl (3.4-5.0); CALCIUM 9.2 mg/dL (8.5-10.1)
[2023-06-10 18:24] LABS: BLOOD UREA NITROGEN 17.9 mg/dL (7-18)
[2023-06-10] MEDS: ONDANSETRON 4 MG/2 ML VIAL IVPUSH ONE (18:25)
[2023-06-10] MEDS: SODIUM CHLORIDE 0.9% 500 ML INFUS.BAG IV ONE (18:25)
[2023-06-10 18:26] LABS: CREATININE 0.6 mg/dL (0.55-1.3)
[2023-06-10] MEDS: ACETAMINOPHEN 1000 MG/100 ML BAG IVPB ONE (18:26)
[2023-06-10] MEDS: FAMOTIDINE 20 MG/50 ML IVPB 20 MG/50 ML MG IVPB ONE (18:26)
[2023-06-10 18:28] LABS: BILIRUBIN,TOTAL 0.6 mg/dL (0.2-1); TOT PROT 8.8 g/dl (6.4-8.2)
== END 2023-06-10 19:12 | disposition home or self-care (01) ==
LOC: JER 16:14
PROC: 3E033GC Introduction of Other Therapeutic Substance into Peripheral Vein, Percutaneous Approach (ICD-10-PCS; principal; 2023-06-10)
PROC: 3E033GC Introduction of Other Therapeutic Substance into Peripheral Vein, Percutaneous Approach (ICD-10-PCS; 2023-06-10)
PROC: 3E033NZ Introduction of Analgesics, Hypnotics, Sedatives into Peripheral Vein, Percutaneous Approach (ICD-10-PCS; 2023-06-10)
DX: R11.2 Nausea with vomiting, unspecified (principal); R19.7 Diarrhea, unspecified; R10.13 Epigastric pain; Z20.822 Contact with and (suspected) exposure to COVID-19
CPT/HCPCS: 0241U-QW; 36415; 80053; 83690; 84703; 85027; 96365; 96375; 99284-25; J0131